=== PATIENT | male | born 1940 | race Caucasian/White ===

== ENCOUNTER → 2020-12-03 11:15 | Outpatient (CLI) | payer MEDICARE, BC, SELFPAY ==
--- NOTE | ~2020-12-03 | CT_ITS ---
EXAMINATION: CT pelvis wo con EXAM DATE: 12/03/2020 11:35 INDICATION: Pneumaturia . Frequent urination. TECHNIQUE: Spiral CT pelvis wo con was performed without contrast. Axial, coronal and sagittal imag es were reviewed. The dose-length product (DLP) for this examination was 513.38 mGy-cm. The exposur e was tailored according to patient size (auto mA exposure control), and iterative reconstruction ( IR) was used as additional dose reduction technique. Comparison is made to prior examination from 05/07. FINDINGS: The bladder is only mildly distended, but with diffuse wall thickening most likely chronic cystitis. Prostate normal in size. No gas within the bladder or superimposed focal bladder wall thick ening. No bladder diverticulosis. No distal hydroureter. There is mild sigmoid colonic diverticulosis . There is no adjacent inflammatory change to suggest diverticulitis. No pelvic lymphadenopathy. Sac ral neurostimulator bilaterally. 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 IMPRESSION: 1. Diffuse bladder wall thickening consistent with chronic cystitis. 2. Mild sigmoid diverticulosis. Reviewed, dictated and finalized at location B.
== END ==
PROVIDERS: Visit Provider Urology
DX: R93.89 Abnormal findings on diagnostic imaging of other specified body structures (principal); K57.30 Diverticulosis of large intestine without perforation or abscess without bleeding
CPT/HCPCS: 72192

== ENCOUNTER → 2021-07-01 15:16 | Outpatient (CLI) | payer MEDICARE, BC, SELFPAY ==
--- NOTE | ~2021-07-01 | XR_ITS ---
XR foot LT min 3V DATE: 07/01/2021 16:33 INDICATION: Ganglion. Degenerative joint disease. Hallux valgus. 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 Hallux valgus and bunion deformity. 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 There is focal soft tissue swelling along the medial aspect of the great toe centered at the interpha langeal joint. There is a small punched-out area along the medial head of the proximal phalanx of the great toe and along the medial aspect of the head of the first metatarsal bone.. Consider gout. Approximately 7.6 x 11.5 mm benign-appearing cystic area with thin sclerotic rim in the distal talar area. This is likely degenerative cyst. Otherwise no periosteal reaction or bone destruction is evident. Pes planus. IMPRESSION: Status post amputation of the second digit Hallux valgus and bunion deformity Focal soft tissue swelling along the medial aspect of the great toe and small punched out area of the medial head of the proximal phalanx; consider gout Hallux valgus and bunion deformity Pes planus Reviewed, dictated and finalized at location A. IMPRESSION: Status post amputation of the second digit Hallux valgus and bunion deformity Focal soft tissue swelling along the medial aspect of the great toe and small p unched out area of the medial head of the proximal phalanx; consider gout Hallux valgus and bunion deformity Pes planus
== END ==
PROVIDERS: Visit Provider Podiatrist Foot & Ankle Surgery
DX: M67.472 Ganglion, left ankle and foot (principal); M20.12 Hallux valgus (acquired), left foot; M21.612 Bunion of left foot; M79.89 Other specified soft tissue disorders; M21.42 Flat foot [pes planus] (acquired), left foot
CPT/HCPCS: 73630

== ENCOUNTER 2023-01-18 18:55 | Emergency (ER) | payer MEDICARE, BC, SELFPAY ==
[2023-01-18 19:27] VITALS: BP 142/90; PULSE 103; RESP 20; TEMP 38.2; O2SAT 100
--- NOTE | 2023-01-18 19:41 | ED.EXTPRO ---
HPI - Extremity Problem General Chief complaint: Extremity Problem,Nontraumatic Stated complaint: right foot pain Source: patient Mode of arrival: ambulatory Limitations: no limitations History of Present Illness HPI Narrative: 82-year-old male presents to [facility] with complaints of pain, swelling and erythema to medial aspect of right foot for the past 2 days. Patient denies known injury but is concerned that he might have injured his foot. Patient reports that he was diagnosed with gout approximately 1 year ago. Patient denies fever, body aches, chills, nausea, vomiting or diarrhea. MD Complaint: extremity pain and extremity swelling Onset (ago): day(s) (2) Radiation: none Relieving factors: nothing Exacerbating factors: weight bearing Associated symptoms: denies other symptoms Related Data Home Medications Medication Instructions Recorded Confirmed desmopressin 0.2 mg tablet mg 01/18/23 donepezil 5 mg tablet mg 01/18/23 latanoprost 0.005 % eye drops drp 01/18/23 mirtazapine 15 mg tablet 15 mg PO DAILY 01/18/23 01/18/23 Allergies Allergy/AdvReac Type Severity Reaction Status Date / Time No Known Allergies Allergy Verified 01/18/23 19:23 Review of Systems Constitutional: Constitutional: Denies chills, Denies fatigue, Denies fever(s) and Denies weakness ENT: Denies dizziness, Denies epistaxis and Denies nasal congestion Cardiovascular: Cardiovascular: Denies chest pain Respiratory: Respiratory: Denies cough, Denies dyspnea and Denies wheezing Gastrointestinal: Gastrointestinal: Denies diarrhea, Denies nausea and Denies vomiting Musculoskeletal: Musculoskeletal: Reports arthralgias and Reports joint swelling Comments: Pain, swelling and erythema to right foot Integumentary/Breasts: Skin/Breast: Denies breast mass, Denies pruritus, Reports erythema, Denies rash and Denies skin ulcer Neurologic: Denies vertigo, Denies dizziness and Denies syncope PMFSH Comments At time of signature, I agree with nursing past medical, surgical, social and family history. There is no relevant family history pertinent to the presenting complaint. Exam Const: General: healthy appearing Nutritional Appearance: thin Orientation/consciousness: patient oriented x3 Limitations: no limitations Neck: Neck: normal visual inspection Resp: Effort & Inspection: normal respiratory effort and not labored Auscultation: clear to auscultation bilaterally, no crackles, no rales and no rhonchi Cardio: Rate: regular rate Rhythm: regular rhythm Heart sounds: no murmurs Skin: Other: 10 cm area of erythema, warmth noted to medial aspect of right foot; there is no pain at area of erythema. there is mild pain noted to dorsal aspect of right foot upon palpation. There is no erythema or swelling at site of pain. Symptoms are concerning for gout versus cellulitis. There is no open wound, streaking erythema or necrotic tissue noted Neuro: General: patient oriented x3 Speech: normal speech Extrem: Other: see skin assessment; erythema and pain noted to Medial aspect of right foot. Pulses are within normal limits. Psych: Affect: normal affect Attitude: cooperative Course Course Level of Care: Express Care Visit Vital Signs Vital signs: Vital Signs Temperature 38.2 C H 01/18/23 19:27 Pulse Rate 103 H 01/18/23 19:27 Respiratory Rate 20 01/18/23 19:27 Blood Pressure 142/90 H 01/18/23 19:27 Pulse Oximetry 100 01/18/23 19:27 Oxygen Delivery Room Air 01/18/23 19:27 Temperature 38.2 C H 01/18/23 19:27 Pulse Rate 103 H 01/18/23 19:27 Respiratory Rate 20 01/18/23 19:27 Blood Pressure 142/90 H 01/18/23 19:27 Pulse Oximetry 100 01/18/23 19:27 Oxygen Delivery Room Air 01/18/23 19:27 MDM - Extremity (Nontraumatic) MDM Narrative Medical decision making narrative: due to presentation and symptoms, patient will be treated with antibiotic and steroids to rule
== END 2023-01-18 20:11 | disposition home or self-care (01) ==
PROVIDERS: Emergency Provider Nurse Practitioner Family; PCP Physician Assistant
DX: M79.671 Pain in right foot (principal)
CPT/HCPCS: 99213; G0463

== ENCOUNTER 2023-06-08 16:13 | Emergency (ER) | payer MEDICARE, BC, SELFPAY ==
--- NOTE | ~2023-06-08 | XR_ITS ---
EXAMINATION: [id number] Exam Date/Time: 06/08/2023 17:31 CHEMISTRY FACULTY MEMBER HISTORY: FALL YESTERDAY WITH L SIDED RIB AND L KNEE PAIN Comparison: 05/07/2016. RESULT: Lines, tubes, and devices: None. Lungs and pleura: Clear. Calcified granuloma. Cardiomediastinal silhouette: Stable. Calcified lymph nodes. Other: No acute osseous or upper abdominal finding. Old right humeral head fracture. IMPRESSION: No acute cardiopulmonary process. No acute finding in the left ribs Reviewed, dictated and finalized at location K. ISTRY FACULTY MEMBER
--- NOTE | ~2023-06-08 | XR_ITS ---
EXAM: XR knee LT min 4V DATE: 06/08/2023 17:43 HISTORY: FALL ONTO L SIDE YESTERDAY, PAIN IN RIBS, L KNEE . COMPARISON: None available. FINDINGS: Decreased mineralization. No fracture or dislocation. No lytic or blastic lesion. Mild tri compartmental arthritic change with chondrocalcinosis. Quadriceps enthesopathy. No erosion or periost eal change. Soft tissue swelling anterior to the patella and patellar tendon. Quadriceps thickening. IMPRESSION: Osteopenia. Left knee arthritis. Anterior soft tissue swelling. Possible quadriceps and/o r patellar tendon tendinopathy/tendinitis. Reviewed, dictated and finalized at location K. SPINNER IMPRESSION: Osteopenia. Left knee arthritis. Anterior soft tissue swelling. Pos sible quadriceps and/or patellar tendon tendinopathy/tendinitis.
[2023-06-08 16:30] VITALS: BP 157/94; PULSE 74; RESP 14; TEMP 36.3; O2SAT 98
--- NOTE | 2023-06-08 17:15 | ED.GENADULT ---
HPI - General Adult General Chief complaint: Extremity Injury, Lower Stated complaint: left knee pain/left side bruise from fall Time Seen by Provider: 06/08/23 17:15 Source: patient, RN notes reviewed and old records reviewed Mode of arrival: ambulatory Limitations: no limitations History of Present Illness HPI narrative: 83-year-old male to [facility] status post fall yesterday at 5:00 p.m. at home. Patient endorses that he fell onto his left side primarily onto left chest and left knee. Patient presenting left-sided chest pain that is worse with coughing or certain movements and left knee pain. Patient endorses that he does chronic left knee pain but that it has increased since the fall. Patient able to ambulate with steady gait to exam room. Related Data Home Medications Medication Instructions Recorded Confirmed desmopressin 0.2 mg tablet 0.2 mg PO DAILY 01/18/23 06/08/23 donepezil 5 mg tablet 5 mg PO DAILY 01/18/23 06/08/23 latanoprost 0.005 % eye drops 1 drp ophthalmic (eye) DAILY 01/18/23 06/08/23 mirtazapine 15 mg tablet 15 mg PO DAILY 01/18/23 06/08/23 Gemtesa 1 tab-cap PO DAILY 06/08/23 06/08/23 Allergies Allergy/AdvReac Type Severity Reaction Status Date / Time No Known Allergies Allergy Verified 06/08/23 16:46 Review of Systems Review of Systems: All systems reviewed & are unremarkable except as noted in HPI and below Constitutional: Constitutional: Reports no additional constitutional complaints Eyes: Eyes: Reports no additional eye complaints ENT: Reports system reviewed and no additional complaints, except as documented Cardiovascular: Cardiovascular: Reports no additional cardiovascular complaints, Denies chest pain and Denies dyspnea Respiratory: Respiratory: Reports cough, Reports pain with cough ( left ribs) and Denies dyspnea Musculoskeletal: Musculoskeletal: Reports arthralgias ( Left knee. chronic but acutely worse status post fall) Neurologic: Reports system reviewed and no additional complaints, except as documented Psychiatric: Psychiatric: Reports no additional psychiatric complaints PMFSH Comments At the time of my signature, I reviewed and agree with the nursing past medical, surgical, social, and family history. There is no relevant family history pertinent to the patient complaint. Exam Const: General: cooperative, healthy appearing, comfortable, no acute distress, alert and well nourished Nutritional Appearance: well nourished Orientation/consciousness: patient oriented x3 Limitations: no limitations HENMT: Head: normal to inspection Ears: external ears normal Face/Nose/Sinus: Normal external nose present, Normal nares present, normal facial exam, No erythema and No edema Face and sinus: normal facial exam, no erythema and no edema Mouth: Yes Normal oral and palatal mucosa present Eyes: General: appearance normal, both eyes and all related structures Neck: Neck: normal visual inspection, full ROM and no meningeal signs Lymphatic: no lymphadenopathy noted and no lymphedema noted Chest: Chest palpation & inspection: normal inspection of the chest Resp: Effort & Inspection: normal respiratory effort, able to speak in complete sentences, no nasal flaring and no pursed lip breathing Auscultation: clear to auscultation bilaterally Cardio: Jugular venous distension: no JVD Rate: regular rate Rhythm: regular rhythm Back/Spine/Pelvis: Cervical Spine: cervical ROM normal Skin: General skin exam: normal color, no rashes or lesions noted and turgor normal Neuro: General: patient oriented x3, gait normal, moves all extremities and no meningeal signs Speech: normal speech Gait exam (Neuro): Normal gait present Extrem: General: normal to inspection, full ROM, capillary refill normal, calf tenderness, normal gait, no calf tenderness bilaterally and no edema Psych: Appearance: grossly normal and well kempt Course Course Emergency Course: Some parts of this dictatio
== END 2023-06-08 18:30 | disposition home or self-care (01) ==
PROVIDERS: Emergency Provider Nurse Practitioner Family; PCP Physician Assistant
DX: G89.29 Other chronic pain (principal); M25.562 Pain in left knee; R07.81 Pleurodynia; F03.90 Unspecified dementia, unspecified severity, without behavioral disturbance, psychotic disturbance, mood disturbance, and anxiety; G47.30 Sleep apnea, unspecified
CPT/HCPCS: 71101; 73564; 99214; G0463

== ENCOUNTER 2024-01-27 08:22 | Emergency (ER) | payer MEDICARE, BC, SELFPAY ==
[2024-01-27 08:42] VITALS: BP 124/67; PULSE 51; RESP 16; TEMP 37.2; O2SAT 96
--- NOTE | 2024-01-27 08:42 | ECG_ITS ---
Test Date: 2024-01-27 08:36:23 Measurements Intervals [place] Rate: 48 P: 38 NE: 168 QRS: -38 QRSD: 104 T: -52 QT: 496 QTc: 444 Interpretive Statements SINUS BRADYCARDIA MARKED LEFT AXIS DEVIATION [QRS AXIS < -30] VOLTAGE CRITERIA FOR LVH [MEETS CRITERIA IN ONE OF: R(aVL), S(V1), R(V5), R(V5/V6)+S(V1)] ST DEVIATION AND MODERATE T-WAVE ABNORMALITY, CONSIDER ANTEROLATERAL ISCHEMIA [-0.1+ mV T WAVE IN V3-V6] ST DEVIATION AND MODERATE T-WAVE ABNORMALITY, CONSIDER INFERIOR ISCHEMIA [-0.1+ mV T WAVE IN II/aVF] No previous ECG available for comparison Electronically Signed On 01-27-2024 09:44:07 CDT by Fermin Mace M.D.
--- NOTE | 2024-01-27 09:05 | ED.CHESTPAIN ---
HPI - Chest Pain General Chief Complaint: Chest Pain Stated Complaint: pain center of chest Time Seen by Provider: 01/27/24 08:45 Source: patient and RN notes reviewed Mode of arrival: ambulatory Limitations: no limitations History of Present Illness HPI narrative: Patient presents today complaining of sternal chest pain that started approximately 9 hours prior to arrival the he describes as burning. No additional symptoms reported to include radiation of the pain, shortness of breath, dizziness or lightheadedness, headache, numbness or tingling in the extremities, nausea or vomiting, abdominal pain. No history of GERD or her urine. He has tried no [id number] interventions prior to arrival. Patient does have history of hypertension and a thoracic aortic aneurysm. He is not currently take anything for his hypertension. Nothing makes his pain better or worse. It did keep him from sleeping last night. Related Data Home Medications Medication Instructions Recorded Confirmed desmopressin 0.2 mg tablet 0.2 mg PO DAILY 01/18/23 01/27/24 donepezil 5 mg tablet 5 mg PO DAILY 01/18/23 01/27/24 latanoprost 0.005 % eye drops 1 drp ophthalmic (eye) DAILY 01/18/23 01/27/24 mirtazapine 15 mg tablet 15 mg PO DAILY 01/18/23 01/27/24 Gemtesa 1 tab-cap PO DAILY 06/08/23 01/27/24 Allergies Allergy/AdvReac Type Severity Reaction Status Date / Time No Known Allergies Allergy Verified 01/27/24 08:35 Review of Systems Review of Systems: CONSTITUTIONAL: Denies body aches, fever, chills, or sweats. EYES: Denies visual changes, redness, or discharge. ENT: Denies rhinorrhea, congestion, sore throat, or otalgia. CARDIOVASCULAR: Denies palpitations, or edema.+ chest pain RESPIRATORY: Denies cough or dyspnea. GASTROINTESTINAL: Denies abdominal pain, nausea, vomiting, or diarrhea. GENITOURINARY: Denies dysuria or hematuria. SKIN: Denies rash, itching, or wounds. MUSCULOSKELETAL: Denies back pain, joint pain, or myalgia. NEUROLOGIC: Denies headache, numbness, tingling, or weakness. PSYCH: Denies depression or anxiety. [facility] Past Medical History Medical History (Updated 01/27/24 @ 09:11 by Iman Shah, [facility], ) Hypertension Sleep apnea Thoracic aortic aneurysm without rupture Comments At time of signature, I have reviewed and agree with nursing past medical, surgical, social and family history unless otherwise noted. Please see nursing chart for further information. There is no relevant family history pertinent to the presenting complaint Exam Narrative: GENERAL: Well-appearing, well-nourished, and in no acute distress. HEAD: Normocephalic, atraumatic. EYES: EOMI. No redness or drainage. Conjunctivae normal. ENT: Mucous membranes pink and moist. Nares clear. NECK: Normal AROM. Supple. No lymphadenopathy. CHEST: No respiratory distress. Clear to auscultation. Chest is nontender to palpation. HEART: Regular rhythm. + bradycardic. No murmur appreciated. Normal peripheral pulses. ABDOMEN: Soft, nontender, nondistended, normal active bowel sounds. EXTREMITIES: Normal range of motion. Scant to 1+ pitting edema in the bilateral ankles. SKIN: Warm, dry, no rash. Capillary refill normal. Normal skin turgor. NEURO: No focal deficits. Alert and oriented x3. Gait steady. PSYCH: Normal affect. No signs of depression or anxiety. Course Course Level of Care: Express Care Visit Vital Signs Vital signs: Vital Signs Temperature 98.9 F 01/27/24 08:42 Pulse Rate 51 L 01/27/24 08:42 Respiratory Rate 16 01/27/24 08:42 Blood Pressure 124/67 01/27/24 08:42 Pulse Oximetry 96 01/27/24 08:42 Oxygen Delivery Room Air 01/27/24 08:42 Temperature 98.9 F 01/27/24 08:42 Pulse Rate 51 L 01/27/24 08:42 Respiratory Rate 16 01/27/24 08:42 Blood Pressure 124/67 01/27/24 08:42 Pulse Oximetry 96 01/27/24 08:42 Oxygen Delivery Room Air 01/27/24 08:42 Reviewed MDM - Chest Pain MDM Narrative Medical decision making narrative: Discussed symptoms, EKG findings, and urgent care limitations with patient. Recommend ER transfer for further evaluation. He declines transfer at this time and will sign out against medical advice. Differential Diagnosis Differential diagnosis: Likely stable angina, atypical chest pain, chest pain and other (GERD, gastritis) ECG Data EKG #1: Attestation: I personally reviewed and interpreted this ECG as follows: ECG completion date: 01/27/24 ECG completion time: 08:36 Prior ECG tracings: available for review Interpretation: Sinus bradycardia, left axis deviation, left ventricular hypertrophy. STD deviation and moderate T-wave abnormality Critical Care Time Critical Care Time Critical Care Time: No Discharge Plan Discharge Clinical Impression: Mid sternal chest pain Patient Disposition: Left Against Medical Advice Condition: Stable Instructions: Chest Pain (ED) Additional Instructions: You are choosing to be discharged against medical advice instead of transferring to the emergency room for further evaluation. Please seek further treatment, especially if symptoms worsen. Your blood pressure was elevated above 120/80 today at Urgent Care. This puts you above the threshold for follow up. Please schedule a followup visit with your personal physician as soon as possible, for further evaluation and treatment. Even blood pressure exceeding 120/80 may indicate pre-hypertension. Prescriptions: No Action latanoprost 0.005 % drops 1 drp ophthalmic (eye) DAILY donepezil 5 mg tablet 5 mg PO DAILY desmopressin 0.2 mg tablet 0.2 mg PO DAILY mirtazapine 15 mg tablet 15 mg PO DAILY Gemtesa 1 tab-cap PO DAILY Follow-up/Referrals: Ean,EFREN Ruelas Jr. [Primary Care Provider] - Time of Disposition: 09:07
== END 2024-01-27 09:10 | disposition left against medical advice (07) ==
PROVIDERS: Emergency Provider Nurse Practitioner; PCP Physician Assistant
DX: R07.2 Precordial pain (principal); I10 Essential (primary) hypertension
CPT/HCPCS: 93005; 99213; G0463

== ENCOUNTER 2024-01-29 16:51 | Emergency (ER) | payer MEDICARE, BC, SELFPAY ==
--- NOTE | ~2024-01-29 | XR_ITS ---
XR knee RT min 4V DATE: 01/29/2024 17:41 INDICATION: Fall. Right knee injury, pain TECHNIQUE: Crosstable lateral, sunrise, AP, tunnel views COMPARISON: None FINDINGS: Osteopenia. Superior pole patellar enthesopathy at the quadriceps tendon insertion site. There is mild chondrocalcinosis of the knee joint. Mild periarticular spurring of the patella. Joint spaces appear well preserved. No fracture or dislocation or joint effusion, periosteal reaction or bone destruction is detected. IMPRESSION: Mild patellofemoral osteoarthritis Patellar enthesopathy Mild chondrocalcinosis No fracture or dislocation or joint effusion Reviewed, dictated and finalized at location A.
--- NOTE | ~2024-01-29 | XR_ITS ---
XR knee LT min 4V DATE: 01/29/2024 17:41 INDICATION: Fall TECHNIQUE: 4 views COMPARISON: 06/08/2023 left knee FINDINGS: Osteopenia. No fracture or dislocation or joint effusion is evident. Patellar enthesopathy at quadriceps tendon insertion site. Mild chondrocalcinosis. Joint spaces appear relatively preserved. IMPRESSION: Osteopenia Chondrocalcinosis No fracture or dislocation or joint effusion Reviewed, dictated and finalized at location A.
[2024-01-29 17:07] VITALS: BP 144/82; PULSE 96; RESP 20; TEMP 38.1; O2SAT 95
[2024-01-29 17:10] VITALS: TEMP 37.1
--- NOTE | 2024-01-29 17:54 | ED.FALL ---
HPI - Fall General Chief Complaint: Fall Stated Complaint: FALL Source: patient, family and RN notes reviewed Limitations: dementia History of Present Illness HPI Narrative: Patient presents accompanied by his . Reportedly he had trip and fall yesterday while bringing in groceries. He landed on his knees, denies other injury and trauma, including head trauma. He reports that whole body is sore today, but most pain is in the knees. He reports abrasions and bruising to both knees. Patient does have some dementia, accompanies him and helps with HPI Related Data Home Medications Medication Instructions Recorded Confirmed desmopressin 0.2 mg tablet 0.2 mg PO DAILY 01/18/23 01/29/24 donepezil 5 mg tablet 5 mg PO DAILY 01/18/23 01/29/24 latanoprost 0.005 % eye drops 1 drp ophthalmic (eye) DAILY 01/18/23 01/29/24 mirtazapine 15 mg tablet 15 mg PO DAILY 01/18/23 01/29/24 Gemtesa 1 tab-cap PO DAILY 06/08/23 01/29/24 Allergies Allergy/AdvReac Type Severity Reaction Status Date / Time No Known Allergies Allergy Verified 01/29/24 16:52 Review of Systems Review of Systems: All systems reviewed & are unremarkable except as noted in HPI and below Constitutional: Constitutional: Reports no additional constitutional complaints ENT: Reports system reviewed and no additional complaints, except as documented Cardiovascular: Cardiovascular: Reports no additional cardiovascular complaints Respiratory: Respiratory: Reports no additional respiratory complaints Gastrointestinal: Gastrointestinal: Reports no additional gastrointestinal complaints Musculoskeletal: Musculoskeletal: Reports no additional musculoskeletal complaints and Reports as per HPI Integumentary/Breasts: Skin/Breast: Reports system reviewed and no additional complaints, except as docu and Reports as per HPI [facility] Past Medical History Medical History (Updated 01/30/24 @ 00:00 by Background Daemon) Hypertension Sleep apnea Thoracic aortic aneurysm without rupture Exam Const: General: cooperative, no acute distress, alert and awake Orientation/consciousness: oriented to person, oriented to place and oriented to time HENMT: Head: normal to inspection Resp: Effort & Inspection: normal respiratory effort and able to speak in complete sentences Auscultation: clear to auscultation bilaterally, no crackles, no rales, no rhonchi and no wheezes Cardio: Palpation: normal PMI Rate: regular rate Rhythm: regular rhythm Heart sounds: S1 normal heart sound present and S2 normal heart sound present Skin: General skin exam: ecchymosis (Bilateral knees) Trauma: abrasion (Bilateral knee) Neuro: General: oriented to person, oriented to place and oriented to time Cranial nerves: Yes CN's II-XII intact bilaterally Psych: Appearance: grossly normal Thought process: Normal thought process present Insight: Good insight present (Psych) Judgement: Good judgement present (Psych) Course Course Level of Care: Express Care Visit Vital Signs Vital signs: Vital Signs Temperature 100.5 F H 01/29/24 17:07 Pulse Rate 96 01/29/24 17:07 Respiratory Rate 20 01/29/24 17:07 Blood Pressure 144/82 H 01/29/24 17:07 Pulse Oximetry 95 01/29/24 17:07 Oxygen Delivery Room Air 01/29/24 17:07 Temperature 98.7 F 01/29/24 17:10 Pulse Rate 96 01/29/24 17:07 Respiratory Rate 20 01/29/24 17:07 Blood Pressure 144/82 H 01/29/24 17:07 Pulse Oximetry 95 01/29/24 17:07 Oxygen Delivery Room Air 01/29/24 17:07 MDM - Fall MDM Narrative Medical decision making narrative: Patient with dementia, but very cooperative and A&O x3 today, accompanied by . Appear to be febrile on arrival, recheck shows that this is not the case. He uses walker at baseline, has this with him today and he is using it adequately. Superficial abrasions and some bruising to bilateral knees, negative x-rays. No other injuries. Continue using walker, fall precautions discussed. Discharge instructions reviewed with patient, as well as provided in writing per nursing staff. The instructions also include specific and strict return/GO TO THE ER as well as f/u information. All questions have been answered, and the patient deny any further questions with discharge and discharge plan. Some parts of this dictation were generated by voice recognition software and may contain typographical and/or grammatical inaccuracies. Differential Diagnosis Differential diagnosis: Likely other (Fall, knee pain, musculoskeletal pain, abrasion, contusion) Medical Records Attestation: I reviewed the patient's medical records. Imaging Data Attestation: I personally reviewed and interpreted this imaging study as follows: My impression: Bilateral knees without acute findings Radiologist's impression: Patient: Malik Adan [facility] [address] [place] [address] XRay Report Signed Patient: Malik Adan : 1940 MR#: [id number] Age: 83 Acct:[id number] Loc: [facility] ADM Date: 01/29/24Attending Dr: Ordering Physician: Elizabeth Pretty FNP Date of Service: 01/29/24 Procedure(s): XR knee LT min 4V Accession Number(s): [id number] cc: Elizabeth Pretty FNP; Dizes, Suraj SCHWARTZ~ XR knee LT min 4V DATE: 01/29/2024 17:41 INDICATION: Fall TECHNIQUE: 4 views COMPARISON: 06/08/2023 left knee FINDINGS: Osteopenia. No fracture or dislocation or joint effusion is evident. Patellar enthesopathy at quadriceps tendon insertion site. Mild chondrocalcinosis. Joint spaces appear relatively preserved. IMPRESSION: Osteopenia Chondrocalcinosis No fracture or dislocation or joint effusion Reviewed, dictated and finalized at location A. Dictated By: Trevon Poole MD 01/29/241749 Signed By: <Electronically signed by Trevon Poole MD in OV> 01/29/241751 : 1940 MR#: [id number] Age: 83 Acct:[id number] Loc: [facility] ADM Date: 01/29/24Attending Dr: Ordering Physician: Elizabeth Pretty FNP Date of Service: 01/29/24 Procedure(s): XR knee RT min 4V Accession Number(s): [id number] cc: Elizabeth Pretty, MATILDA; Dizes, Suraj SCHWARTZ~ XR knee RT min 4V DATE: 01/29/2024 17:41 INDICATION: Fall. Right knee injury, pain TECHNIQUE: Crosstable lateral, sunrise, AP, tunnel views COMPARISON: None FINDINGS: Osteopenia. Superior pole patellar enthesopathy at the quadriceps tendon insertion site. There is mild chondrocalcinosis of the knee joint. Mild periarticular spurring of the patella. Joint spaces appear well preserved. No fracture or dislocation or joint effusion, periosteal reaction or bone destruction is detected. IMPRESSION: Mild patellofemoral osteoarthritis Patellar enthesopathy Mild chondrocalcinosis No fracture or dislocation or joint effusion Reviewed, dictated and finalized at location A. Dictated By: Trevon Poole MD 01/29/24 1748 Signed By: <Electronically signed by Trevon Poole MD in OV> 01/29/24 1750 Discharge Plan Discharge Clinical Impression: Musculoskeletal limb pain Patient Disposition: Home, Self-Care Condition: Stable Instructions: Antibiotic Form, P.R.I.C.E. Treatment (ED) Additional Instructions: Tylenol per package instructions as needed for pain. Follow-up with primary care provider. Emergency department for new or worse symptoms Patient Language: Venezuelan Prescriptions: No Action latanoprost 0.005 % drops 1 drp ophthalmic (eye) DAILY donepezil 5 mg tablet 5 mg PO DAILY desmopressin 0.2 mg tablet 0.2 mg PO DAILY mirtazapine 15 mg tablet 15 mg PO DAILY Gemtesa 1 tab-cap PO DAILY Follow-up/Referrals: Ean,EFREN Ruelas Jr. [Primary Care Provider] - 1 Week Time of Disposition: 17:58
== END 2024-01-29 18:05 | disposition home or self-care (01) ==
PROVIDERS: Emergency Provider Nurse Practitioner Family; PCP Physician Assistant
DX: M25.562 Pain in left knee (principal); M25.561 Pain in right knee; F03.90 Unspecified dementia, unspecified severity, without behavioral disturbance, psychotic disturbance, mood disturbance, and anxiety; I10 Essential (primary) hypertension
CPT/HCPCS: 73564; 99214; G0463